=== PATIENT | female | born 1995 | race Caucasian/White ===

== ENCOUNTER 2016-11-01 21:53 | Emergency (ER) | payer OTHER ==
[2016-11-01] MEDS ORDERED: ONDANSETRON INJ 4 MG/2 ML VIAL IV ONE (23:10)
[2016-11-01] MEDS ORDERED: SODIUM CHLORIDE 0.9% 1000ML 1,000 ML IVS ONE (23:10)
[2016-11-01 23:41] VITALS: O2SAT 97
--- NOTE | 2016-11-01 23:45 | ED.PDOC ---
History of Present Illness - General Chief Complaint: GI Problem Stated Complaint: nausea/ vomiting Time Seen by Provider: 11/01/16 23:10 Information Source: patient, RN notes reviewed, Vital Signs reviewed Exam Limitations: no limitations - History of Present Illness Initial Comments: Patient is a 21 y/o female who has had nausea for 2 weeks. It is primarily after dinner. However, today she started vomiting and is now unable to keep fluids down. She denies any pain. She has had no diarrhea. She recently changed her seizure medication. Her LMP was 10/15/2016. Abdominal Pain Onset Location: other - No pain Timing/Duration: other - nausea 2 weeks, vomiting several hours. Improving Factors: nothing Worsening Factors: eating Associated Symptoms: nausea/vomiting Review of Systems - Review of Systems Constitutional: States: no symptoms reported. Denies: chills, fever EENTM: States: no symptoms reported Respiratory: States: no symptoms reported Cardiology: States: no symptoms reported Gastrointestinal/Abdominal: States: nausea, vomiting. Denies: abdominal pain, diarrhea Genitourinary: States: no symptoms reported Musculoskeletal: States: no symptoms reported Skin: States: no symptoms reported Neurological: States: no symptoms reported Endocrine: States: no symptoms reported Hematologic/Lymphatic: States: no symptoms reported All other Systems: Reviewed and Negative Past Medical History (General) - Patient Medical History Hx Seizures: Yes Hx Stroke: No Hx Dementia: No Hx Asthma: No Hx of COPD: No Hx Cardiac Disorders: No Hx Congestive Heart Failure: No Hx Pacemaker: No Hx Hypertension: No Hx Thyroid Disease: No Hx Diabetes: No Hx Gastroesophageal Reflux: No Hx Renal Disease: No Hx Cancer: No Hx of HIV: No Hx Hepatitis C: No Hx MRSA: No Surgical History: other - Vaccination History Hx Tetanus, Diphtheria Vaccination: Yes - 04/2016 Hx Influenza Vaccination: No Hx Pneumococcal Vaccination: No Immunizations Up to Date: No - Social History Hx Tobacco Use: No Hx Chewing Tobacco Use: No Hx Alcohol Use: Yes - OCCASIONALLY Hx Physical Abuse: No Hx Emotional Abuse: No Hx Suspected Abuse: No - Female History Hx Last Menstrual Period: 10/15/16 Family Medical History - Family History Mother Family History: Unknown Physical Exam - Physical Exam General Appearance: Alert, Comfortable, No apparent distress Eyes, Ears, Nose, Throat Exam: normal ENT inspection Neck: supple Respiratory: lungs clear, normal breath sounds, no respiratory distress, no accessory muscle use Cardiovascular/Chest: regular rate, rhythm, no edema, no gallop, no murmur Gastrointestinal/Abdominal: non tender, soft, no organomegaly, abnormal bowel sounds - hyperactive Back Exam: normal inspection, no CVA tenderness, no vertebral tenderness Extremity: normal range of motion, non-tender, normal inspection, no pedal edema Neurologic: alert, normal mood/affect, oriented x 3 Skin Exam: normal color, warm/dry Special Observations: No evidence of discomfort Progress - Progress Progress: 11/02/16 00:20 Patient received Zofran 4 mg and a liter of NS. She felt better afterward. I' m not sure what may be causing her nausea, however it may be a side effect of her medication. She has contacted her neurologist and he will change her medication. I will give Patient a prescription for Zofran that she can take if she has any additional vomiting. I have encouraged her to follow up with her PCP if her symptoms persist, or the ED if her symptoms worsen. - Results/Orders Results/Orders: 11/01/16 11/01/16 22:17 23:16 Temperature 100.1 F H Pulse Rate [ 102 H 89 left] Respiratory 18 18 Rate Blood Pressure 132/72 108/68 [left] O2 Sat by Pulse 98 97 Oximetry Laboratory Results WBC 8.4 K/mm3 (4.8-10.8) 11/01/16 23:30 RBC 4.66 M/mm3 (4.20-5.40) 11/01/16 23:30 Hgb 13.7 gm/dL (12.0-16.0) 11/01/16 23:30 Hct 40.8 % (36.0-47.0) 11/01/16 23:30 MCV 87.6 fl (81.0-99.0) 11/01/16 23:30 MCH 29.3 pg (27.0-31.0) 11/01/16 23:30 MCHC 33.5 g/dL (33.0-37.0) 11/01/16 23:30 RDW 13.7 % (11.5-14.5) 11/01/16 23:30 Plt Count 204 K/mm3 (130-400) 11/01/16 23:30 MPV 9.8 fl (7.40-10.4) 11/01/16 23:30 Absolute Neuts (auto) 7.50 K/uL (1.8-6.8) H 11/01/16 23:30 Absolute Lymphs (auto) 0.50 K/uL (1.0-3.4) L 11/01/16 23:30 Absolute Monos (auto) 0.40 K/uL (0.2-0.8) 11/01/16 23:30 Absolute Eos (auto) 0.00 K/uL (0.0-0.4) 11/01/16 23:30 Absolute Basos (auto) 0.00 K/uL (0.0-0.1) 11/01/16 23:30 Neutrophils % 89.5 % (42.0-78.0) H 11/01/16 23:30 Lymphocytes % 5.6 % (20.0-50.0) L 11/01/16 23:30 Monocytes % 4.4 % (2.0-9.0) 11/01/16: Eosinophils % 0.2 % (1.0-5.0) L 11/01/16 23:30 Basophils % 0.3 % (0.0-2.0) 11/01/16 23:30 Sodium 137 mmol/L (135-145) 11/01/16 23:30 Potassium 3.8 mmol/L (3.6-5.0) 11/01/16 23:30 Chloride 105 mmol/L (101-111) 11/01/16 23:30 Carbon Dioxide 25 mmol/L (21-31) 11/01/16 23:30 Anion Gap 10.8 (12-18) L 11/01/16 23:30 BUN 16 mg/dL (7-18) 11/01/16 23:30 Creatinine 0.96 mg/dL (0.6-1.3) 11/01/16:30 BUN/Creatinine Ratio 16.7 (10-20) 11/01/16 23: Random Glucose 112 mg/dL (70-105) H 11/01/16 23:30 Serum Osmolality 275.8 mOsm/L (275-295) 11/01/16 23: Calcium 9.0 mg/dL (8.4-10.2) 11/01/16 23: Total Bilirubin 1.8 mg/dL (0.2-1.0) H 11/01/16 23:30 AST 17 IU/L (10-42) 11/01/16 23:30 ALT 15 IU/L (10-60) 11/01/16 23:30 Alkaline Phosphatase 44 IU/L (42-121) 11/01/16 23:30 Serum Total Protein 6.8 gm/dL (6.4-8.2) 11/01/16 23:30 Albumin 4.2 g/dl (3.2-5.5) 11/01/16 23:30 Globulin 2.6 gm/dL (2.3-3.5) 11/01/16 23:30 Albumin/Globulin Ratio 1.6 (1.1-1.9) 11/01/16 23:30 Serum HCG, Qual Negative 11/01/16 23:30 Urine Color Yellow (Yellow) 11/01/16 23:35 Urine Appearance Clear (Clear) 11/01/16 23:35 Urine pH 7.0 (4.5-7.8) 11/01/16 23:35 Ur Specific [place] 1.020 (1.005-1.030) 11/01/16 23:35 Urine Protein Negative mg/dL 11/01/16 23:35 Urine Glucose (UA) Negative mg/dL (Negative) 11/01/16 23:35 Urine Ketones 15 mg/dL (NEGATIVE) H 11/01/16 23:35 Urine Blood Negative (Negative) 11/01/16 23:35 Urine Nitrite Negative 11/01/16 23:35 Urine Bilirubin Negative (NEGATIVE) 11/01/16 23:35 Urine Urobilinogen 0.2 mg/dL (0.2-1.0) 11/01/16 23:35 Ur Leukocyte Esterase Negative (Negative) 11/01/16 23:35 Urine RBC 0 /hpf 11/01/16 23:35 Urine WBC 1-3 /hpf 11/01/16 23:35 Ur Epithelial Cells 3-5 /hpf 11/01/16 23:35 Urine Bacteria Rare 11/01/16 23:35 Urine Mucus Small 11/01/16 23:35 Departure - Departure Clinical Impression: Nausea & vomiting Qualifiers: Vomiting type: unspecified Vomiting Intractability: non-intractable Qualified Code(s): R11.2 - Nausea with vomiting, unspecified Time of Disposition: 00:22 Disposition: Discharge to Home or Self Care Condition: Fair Departure Forms: ED Discharge - Pt. Copy, Patient Portal Self Enrollment Instructions: DI for Nausea -- Adult, Nausea and Vomiting-Adult Diet: bland diet Referrals: Yehuda Linares MD [Primary Care Provider] - 1-2 Weeks Prescriptions: Ondansetron [Ondansetron Odt] 4 mg PO Q8H PRN #10 tab PRN Reason: Nausea/Vomiting Home Medications: Ambulatory Orders Levetiracetam [Keppra] 500 mg PO 11/01/16 Oxytellar 150 mg PO DAILY 11/01/16 Ondansetron [Ondansetron Odt] 4 mg PO Q8H PRN #10 tab 11/02/16 Additional Instructions: follow up with PCP if symptoms persist. Follow up in ED for any worsening of symptoms, including abdominal pain, fever, or intractable vomiting.
[2016-11-02 00:37] VITALS: BP 99/52; TEMP 97.8
== END 2016-11-02 00:37 | disposition home or self-care (01) ==
LOC: ER 21:53
DX: R11.2 Nausea with vomiting, unspecified (principal); G40.909 Epilepsy, unspecified, not intractable, without status epilepticus; Z79.899 Other long term (current) drug therapy
CPT/HCPCS: 36415; 80053; 81001; 84703; 85025; J2405; J7030